=== PATIENT | male | born 2000 | race Caucasian/White ===

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

== ENCOUNTER 2018-05-09 09:48 | Emergency (ER) | payer MEDICAID ==
[~2018-05-09] VITALS: Ht 175.3 cm; Wt 115.7 kg
[2018-05-09 09:50] VITALS: BP_SYST 147
[2018-05-09] MEDS ORDERED: ASPIRIN 81 MG TAB.CHEW PO ONE (10:15)
[2018-05-09] MEDS ORDERED: KETOROLAC TROMETHAMINE 30 MG VIAL ONE (10:20)
[2018-05-09 10:44] LABS: BASOPHILS # (AUTO) 0.1 K/uL (0.0-0.2); BASOPHILS % (AUTO) 1.2 % (0.0-2.0); EOSINOPHILS # (AUTO) 0.1 K/uL (0.0-0.4); EOSINOPHILS % (AUTO) 1.6 % (0.0-4.0); HEMATOCRIT 44.4 % (36-54); HEMOGLOBIN 15.5 g/dL (14.0-18.0); LYMPHOCYTES # (AUTO) 1.8 K/uL (1.0-5.5); LYMPHOCYTES % (AUTO) 29.7 % (20.5-51.5); MEAN CORPUSCULAR HEMOGLOBIN 32 pg (27-31); MEAN CORPUSCULAR HGB CONC 35 % (32-36); MEAN CORPUSCULAR VOLUME 92 fL (79.0-98.0); MONOCYTES # (AUTO) 0.5 K/uL (0.0-1.0); MONOCYTES % (AUTO) 7.9 % (1.7-9.3); NEUTROPHILS # (AUTO) 3.7 K/uL (1.8-7.7); NEUTROPHILS % (AUTO) 59.6 % (40.0-70.0); PLATELET COUNT (AUTO) 260 K/uL (130-430); RED BLOOD CELL COUNT(AUTO) 4.85 MIL/uL (4.2-6.2); RED CELL DISTRIBUTION WIDTH 12.2 % (9.0-15.0); WHITE BLOOD COUNT (AUTO) 6.2 K/uL (4.5-11.0)
[2018-05-09 10:57] LABS: CALCIUM 8.8 mg/dL (8.4-11.0); CREATININE 0.83 mg/dL (0.55-1.30); POTASSIUM 3.9 mmol/L (3.5-5.1)
[2018-05-09 11:02] LABS: ALBUMIN 3.3 g/dL (3.4-4.8); TOTAL BILIRUBIN 0.3 mg/dL (0.0-1.0)
[2018-05-09 11:43] VITALS: BP_SYST 147
[2018-05-09] MEDS ORDERED: KETOROLAC TROMETHAMINE 30 MG VIAL IVP ONE (11:45)
== END 2018-05-09 11:43 | disposition home or self-care (01) ==
LOC: SED 09:48
DX: M94.0 Chondrocostal junction syndrome [Tietze] (principal)
CPT/HCPCS: 36415; 71045; 80053; 84484; 93005; 85025; 96374; 99285; J1885

== ENCOUNTER 2018-09-28 10:45 | Emergency (ER) | payer MEDICAID ==
[~2018-09-28] VITALS: Ht 175.3 cm; Wt 116.1 kg
[2018-09-28 10:45] VITALS: BP_SYST 150
[2018-09-28] MEDS ORDERED: KETOROLAC TROMETHAMINE 60 MG/2 ML VIAL IM ONE (11:15)
[2018-09-28 15:03] VITALS: BP_SYST 150
== END 2018-09-28 13:29 | disposition home or self-care (01) ==
LOC: SED 10:45
DX: S13.4XXA Sprain of ligaments of cervical spine, initial encounter (principal); V89.2XXA Person injured in unspecified motor-vehicle accident, traffic, initial encounter; Y93.89 Activity, other specified; Y92.410 Unspecified street and highway as the place of occurrence of the external cause; Y99.8 Other external cause status
CPT/HCPCS: 70450; 72125; 96372; 99284; J1885

== ENCOUNTER 2019-07-14 23:50 | Emergency (ER) | payer MEDICAID ==
[~2019-07-14] VITALS: Ht 177.8 cm; Wt 117.9 kg
[2019-07-14 23:53] VITALS: BP_SYST 145
--- NOTE | 2019-07-14 23:53 | NUR ---
Patient to ER bed 07 to gown for evaluation. Side rails up. Report given to TIM Ho
--- NOTE | 2019-07-15 | NUR ---
Pt brought in by self, accompanied by brother. Pt awake, alert, oriented x4. Pt states that he has had progressively worsening bilateral testes pain with unknown origin. Pt states that he does not notice any abnormal swelling or deformities to the testes. Pt states that he has had no increased pain on urination or otherwise. Pt Denies chest pain, nausea, vomiting, diarrhea, shortness of breath. Pt resting in bed comfortably. Pt changed into gown, given blanket for comfort. VSS
--- NOTE | 2019-07-15 00:05 | NUR ---
ER at bedside examining patient.
[2019-07-15] MEDS ORDERED: KETOROLAC TROMETHAMINE 30 MG VIAL IM ONE (00:30)
--- NOTE | 2019-07-15 01:21 | NUR ---
Patient off unit to ultrasound
[2019-07-15] MEDS ORDERED: HYDROcodone/ACETAMIN 5-325 MG TAB (NORCO/ VICODIN) PO ONE (01:45)
--- NOTE | 2019-07-15 01:45 | NUR ---
Returned from radiology, back to [facility].
[2019-07-15 01:55] VITALS: BP_SYST 126
--- NOTE | 2019-07-15 01:55 | NUR ---
Patient given written and verbal discharge instructions and verbalizes understanding. ER MD discussed with patient the results and treatment provided. Patient in stable condition. ID arm band removed. NO IV Rx of Naprosyn, Howe 5/325 given. Patient educated on pain management and to follow up with PMD. Opportunity for questions provided and answered. Medication side effect fact sheet provided.
== END 2019-07-15 01:55 | disposition home or self-care (01) ==
LOC: SED 23:50
DX: N43.3 Hydrocele, unspecified (principal)
CPT/HCPCS: 76870; 96372; 99284; J1885